=== PATIENT | female | born 1960 | race African-American/Black ===

== ENCOUNTER → 2024-01-09 09:14 | Outpatient (REF) | payer MEDICARE, OTHER, SELFPAY | LOC: WDC 09:14 | PROVIDERS: ATTENDING PHYSICIAN Physician Assistant Medical | DX: R22.30 Localized swelling, mass and lump, unspecified upper limb (principal); N64.59 Other signs and symptoms in breast | CPT/HCPCS: 76642; 77062; 77066 ==

== ENCOUNTER → 2024-01-20 09:40 | Outpatient (REF) | payer MEDICARE, OTHER, SELFPAY | LOC: RAD 09:40 | PROVIDERS: ATTENDING PHYSICIAN Physician Assistant Medical | DX: Z00.00 Encounter for general adult medical examination without abnormal findings (principal); Z78.0 Asymptomatic menopausal state | CPT/HCPCS: 77080 ==

== ENCOUNTER → 2025-05-24 08:58 | Outpatient (REF) | payer MEDICARE, OTHER, SELFPAY | LOC: HWRAD 08:58 | PROVIDERS: ATTENDING PHYSICIAN Physician Assistant Medical | DX: Z00.00 Encounter for general adult medical examination without abnormal findings (principal) | CPT/HCPCS: 73502 ==

== ENCOUNTER → 2025-07-15 13:24 | Outpatient (REF) | payer MEDICARE, OTHER, SELFPAY | LOC: HWWDC 13:24 | PROVIDERS: ATTENDING PHYSICIAN Physician Assistant Medical | DX: Z12.31 Encounter for screening mammogram for malignant neoplasm of breast (principal) | CPT/HCPCS: 77063; 77067 ==

== ENCOUNTER → 2025-08-24 08:50 | Outpatient (REF) | payer MEDICARE, OTHER, SELFPAY | LOC: PAVMRI 08:50 | PROVIDERS: ATTENDING PHYSICIAN Orthopaedic Surgery; FAMILY PHYSICIAN Physician Assistant Medical | DX: M54.16 Radiculopathy, lumbar region (principal) | CPT/HCPCS: 72148 ==